=== PATIENT | male | born 1995 | race Two or more races ===

== ENCOUNTER → 2025-08-03 | Emergency (ER) | payer OTHER ==
[~2025-08-03] VITALS: Ht 170.2 cm; Wt 86.2 kg
[~2025-08-03] MED LIST: GUAIFENESIN 200 MG/10 ML BLIST.PACK PO ONE; KETOROLAC TROMETHAMINE 30 MG VIAL IM ONE; KETOROLAC TROMETHAMINE 30 MG VIAL ONE
[2025-08-03 09:10] LABS: COVID-19 AG POSITIVE (NEGATIVE)
== END | disposition home or self-care (01) ==
LOC: ER 06:20
PROVIDERS: General Practice
DX: U07.1 COVID-19 (principal)